=== PATIENT | male | born 1935 | race African-American/Black ===

== ENCOUNTER 2017-02-19 03:31 | Inpatient (IN) | payer MEDICARE ==
[2017-02-19] VITALS (632 sets, daily range): BP systolic 129–151; BP diastolic 56–94; PULSE 71–89; TEMP 97.5–98.8; O2SAT 94–100
[~2017-02-19] VITALS: Ht 167.6 cm; Wt 89.7 kg
[2017-02-19] MEDS ORDERED: CONSTULOSE 20G/30ML (05:03)
[2017-02-19] MEDS ORDERED: MILK OF MA400 MG/52 (05:04)
[2017-02-19] MEDS ORDERED: COZAAR 50MG50 MG/TAB PO (05:04)
[2017-02-19] MEDS ORDERED: HCTZ 25MG TAB25 MG PO (05:05)
[2017-02-19] MEDS ORDERED: HYTRIN 5MG C5 MG/CAP PO (05:05)
[2017-02-19] MEDS ORDERED: DEPAKOTE ER 50500 MG PO (05:06)
[2017-02-19] MEDS ORDERED: PROSCAR 5MG5 MG PO (05:07)
[2017-02-19] MEDS ORDERED: CARDIZEM120 MG PO (05:07)
[2017-02-19] MEDS ORDERED: ARICEPT 5MG PO (05:08)
[2017-02-19 06:47] LABS: BASO % 0.2 % (0.0-2.0); EOS % 0.4 % (0-4.0); GRAN # 6.4 (1.4-6.5); GRAN % 79.1 % (42.2-75.2); HEMATOCRIT 39.3 % (42.0-52.0); HEMOGLOBIN 13.3 g/dl (13.5-18.0); LYMPH # 0.8 (1.2-3.4); LYMPH % 9.8 % (20.0-51.0); MEAN CELL VOLUME 105 fl (80.0-100.0); MEAN CORPUSCULAR HEMOGLOBIN 36 pg (27.0-31.0); MEAN CORPUSCULAR HGB CONC 34 g/dl (33.0-37.0); MEAN PLATELET VOLUME 10.6 fl (7.4-10.4); MONO # 0.8 (0.1-0.6); PLATELET COUNT 143 K/mm3 (130-400); RED BLOOD COUNT 3.73 M/mm3 (4.20-5.60); REDCELL DISTRIBUTION WIDTH-CV 13.1 % (11.5-14.5); WHITE BLOOD COUNT 8.1 K/mm3 (4.8-10.8)
[2017-02-19 07:14] LABS: PH 7 (5-8); SQUAMOUS EPITHELIAL 0-2 /hpf; URINE APPEARANCE Cloudy; URINE BACTERIA Many /hpf; URINE BILIRUBIN Negative (NEGATIVE); URINE BLOOD 3+ (NEGATIVE); URINE COLOR Yellow; URINE GLUCOSE Negative (NEGATIVE); URINE KETONE Negative (NEGATIVE); URINE UROBILINOGEN Negative (NEGATIVE); URINE WBC >50 /hpf
[2017-02-19 11:01] LABS: ADJUSTED CALCIUM 10.7 mg/dL (8.4-10.2); ALBUMIN 2.7 gm/dL (3.5-5.0); BILIRUBIN,TOTAL 0.7 mg/dL (0.0-1.0); CALCIUM 9.7 mg/dL (8.4-10.2); CREATININE, serum 0.86 mg/dL (0.66-1.25); TOTAL PROTEIN 5.3 gm/dL (6.4-8.2)
[2017-02-20] VITALS (1209 sets, daily range): BP systolic 60–146; BP diastolic 38–70; PULSE 61–99; TEMP 97.8–98.7; O2SAT 63–100
[2017-02-20 04:49] LABS: BASO % 0.3 % (0.0-2.0); EOS % 0.4 % (0-4.0); GRAN # 5.2 (1.4-6.5); GRAN % 73.2 % (42.2-75.2); HEMOGLOBIN 12.1 g/dl (13.5-18.0); LYMPH # 0.8 (1.2-3.4); LYMPH % 10.9 % (20.0-51.0); MEAN CELL VOLUME 106 fl (80.0-100.0); MEAN CORPUSCULAR HEMOGLOBIN 36 pg (27.0-31.0); MEAN CORPUSCULAR HGB CONC 34 g/dl (33.0-37.0); MEAN PLATELET VOLUME 10.3 fl (7.4-10.4); MONO # 1.1 (0.1-0.6); MONO % 14.9 % (1.7-9.3); PLATELET COUNT 125 K/mm3 (130-400); REDCELL DISTRIBUTION WIDTH-CV 13.2 % (11.5-14.5); WHITE BLOOD COUNT 7.1 K/mm3 (4.8-10.8)
[2017-02-20 05:10] LABS: ADJUSTED CALCIUM 10.7 mg/dL (8.4-10.2); ALBUMIN 2.2 gm/dL (3.5-5.0); BILIRUBIN,TOTAL 0.8 mg/dL (0.0-1.0); CALCIUM 9.3 mg/dL (8.4-10.2); CREATININE, serum 0.96 mg/dL (0.66-1.25); POTASSIUM 4.3 mmol/L (3.4-5.0); TOTAL PROTEIN 4.7 gm/dL (6.4-8.2)
[2017-02-20 05:28] LABS: HEMATOCRIT 36.1 % (42.0-52.0)
[2017-02-20 05:31] LABS: MAGNESIUM 1.5 mg/dL (1.6-2.3); PHOSPHOROUS 3.1 mg/dL (2.5-4.5)
[2017-02-22 18:40] LABS: LACOSAMIDE 6.6 mcg/mL (())
== END 2017-02-20 23:31 | disposition short-term general hospital (02) | DRG 55 ==
LOC: ICU 03:31
PROVIDERS: Family Medicine; Internal Medicine; Psychiatry & Neurology Neurology
PROC: 02HV33Z Insertion of Infusion Device into Superior Vena Cava, Percutaneous Approach (ICD-10-PCS; principal; 2017-02-19)
PROC: 0BH17EZ Insertion of Endotracheal Airway into Trachea, Via Natural or Artificial Opening (ICD-10-PCS; 2017-02-20)
DX: D32.0 Benign neoplasm of cerebral meninges (principal); N17.9 Acute kidney failure, unspecified; F05 Delirium due to known physiological condition; E87.2 Acidosis; G40.401 Other generalized epilepsy and epileptic syndromes, not intractable, with status epilepticus; Z66 Do not resuscitate; E83.42 Hypomagnesemia; I10 Essential (primary) hypertension; J44.9 Chronic obstructive pulmonary disease, unspecified; F03.90 Unspecified dementia, unspecified severity, without behavioral disturbance, psychotic disturbance, mood disturbance, and anxiety; I48.0 Paroxysmal atrial fibrillation
CPT/HCPCS: 99223-AI; 99233-AI; A9585; C1751; C9254; J0330; J0696; J1644; J1953; J2060; J2543; J2704; J3370; J3475; J7030; J7050; J7060; Q2009